=== PATIENT | male | born 1985 | race Caucasian/White ===

== ENCOUNTER → 2019-11-29 | Outpatient (CLI) | payer BC ==
[2019-11-29 08:35] LABS: HEMATOCRIT 48.7 % (42.0-52.0); HEMOGLOBIN 16.8 g/dL (13.5-18.0); MEAN PLATELET VOLUME 9.7 fl (7.4-10.4); RED BLOOD COUNT 5.57 M/mm3 (4.20-5.60); RED CELL DISTRIBUTION WIDTH 12.6 % (11.5-14.5); WHITE BLOOD COUNT 4.6 K/mm3 (4.8-10.8)
[2019-11-29 08:43] LABS: POTASSIUM 3.9 mmol/L (3.5-5.1)
[2019-11-29 08:44] LABS: ALBUMIN 4.6 g/dL (3.5-5.0)
[2019-11-29 08:45] LABS: CALCIUM 9.6 mg/dL (8.3-10.5)
[2019-11-29 08:46] LABS: TOTAL PROTEIN 7.4 g/dL (6.4-8.3)
[2019-11-29 08:48] LABS: TOTAL BILIRUBIN 0.7 mg/dL (0.2-1.2)
== END ==
LOC: LAB 08:21
PROVIDERS: Internal Medicine
DX: Z00.00 Encounter for general adult medical examination without abnormal findings (principal)